=== PATIENT | female | born 1980 | race Hispanic/Latino ===

== ENCOUNTER 2017-10-02 16:59 | Emergency (ER) | payer OTHER ==
[~2017-10-02] VITALS: Ht 160 cm; Wt 72.6 kg
[~2017-10-02 16:59] MED LIST: DAILY MULTIPLE1 EACH PO; IBUPROFEN800 M1 PO; PERCOCET 5-3251 EACH PO
[2017-10-02 19:19] VITALS: BP 126/80
[2017-10-02] MEDS ORDERED: IBUPROFEN800 M1 PO (20:00)
--- NOTE | 2017-10-02 20:01 | ED NECK/BACK PAIN COMPLAINT ---
History of Present Illness General Chief Complaint: General Adult Stated Complaint: PAIN IN RIGHT SIDE OF NECK, BACK AND LEG Source: patient Exam Limitations: language barrier Vital Signs & Intake/Output Vital Signs & Intake/Output Vital Signs Date Time Temp Pulse Resp B/P B/P Pulse O2 O2 Flow FiO2 Mean Ox Delivery Rate 10/02 1918 97.8 63 18 126/80 99 Room Air Room Air 10/02 1711 96.6 64 18 119/78 97 Room Air ED Intake and Output 10/03 0000 10/02 1200 Intake Total Output Total Balance Patient 160 lb Weight Weight Reported by Patient Measurement Method Allergies Coded Allergies: NO KNOWN ALLERGIES (08/13/15) Reconcile Medications Ibuprofen 800 MG TABLET 1 TAB PO TID PAIN Ibuprofen 800 MG TABLET 800 MG PO Q6P PRN UTERINE CRAMPING Multivitamin (Daily Multiple Vitamin) 1 EACH TABLET 1 TAB PO DAILY VITAMIN SUPPORT (Reported) Oxycodone HCl/Acetaminophen (Percocet 5-325 MG Tablet) 1 EACH TABLET 1 TAB PO Q4P PRN PAIN SCALE 4-6 (MODERATE) Triage Note: PT STATES SHE WOKE WITH A STIFF NADINE RIGHT SIDE AND HER BACK AND LEG HURT. Triage Nurses Notes Reviewed? yes Duration: day(s): Timing: recent history : No Patient currently breastfeeds: Yes HPI: This is a 37 y/o female with no significant PMH c/o pain in L gluteal region that started 3 days ago. Pt describes pain as sharp. Pt has been icing the area w/o relief. Pain radiates down the lateral side of her L thigh and posterior calf. Yesterday pt developed pain in her flank region bilaterally with both shoulders and posterior neck pain. Pt denies any trauma or fall. Pt lifts heavy boxes for work. Pain exacerbates with movement. Pt took Motrin with significant relief. Pt denies any CP, SOB, abd pain, N/V/D/C. (Krystian Anaya) Past History Travel History Traveled to [place] past 21 day No Medical History Any Pertinent Medical History? see below for history Neurological: NONE EENT: NONE Cardiovascular: NONE Respiratory: NONE Gastrointestinal: NONE Hepatic: NONE Renal: NONE Musculoskeletal: NONE Psychiatric: NONE Endocrine: NONE Blood Disorders: NONE Cancer(s): NONE METAL MACHINIST/Reproductive: MISCARIAGE X2 Surgical History Surgical History: non-contributory Psychosocial History What is your primary language Syriac Tobacco Use: Never used ETOH Use: denies use Illicit Drug Use: denies illicit drug use Family History Hx Contributory? No (Krystian Anaya) Review of Systems Review of Systems Constitutional: Reports: no symptoms. Eyes: Reports: no symptoms. Ears, Nose, Throat, Mouth: Reports: no symptoms. Respiratory: Reports: no symptoms. Cardiovascular: Reports: no symptoms. Gastrointestinal/Abdominal: Reports: no symptoms. Musculoskeletal: Reports: back pain, muscle pain, muscle stiffness, neck pain. Skin: Reports: no symptoms. Neurological/Psychological: Denies: numbness, paresthesia, tingling, weakness. All Other Systems: Reviewed and Negative (Krystian Anaya) Physical Exam Physical Exam General Appearance: well developed/nourished, mild distress Head: atraumatic, normal appearance Eyes: Bilateral: PERRL, EOMI. Ears, Nose, Throat, Mouth: hearing grossly normal Neck: normal inspection, full range of motion, normal alignment, paraspinous muscle tender Respiratory: normal breath sounds, no respiratory distress, lungs clear Cardiovascular: regular rate/rhythm Gastrointestinal: normal bowel sounds, soft, non-tender Back: normal inspection, normal range of motion, vertebral tenderness, Paraspinal muscle tenderness Extremities: normal range of motion Straight Leg Raising: Right: Negative. Left: Negative. Motor: Deficit L4 Right: No Deficit L4 Left: No Deficit L5 Right: No Deficit L5 Left: No Deficit S1 Right: No Deficit S1 Right: No DTR: Patellar: 3: L4 Right, L4 Left. Neurologic/Psych: awake, alert, oriented x 3, normal mood/affect Skin: intact, normal color, warm/dry Core Measures CVA/TIA Diagnosis: No (Krystian Anaya) Progress Differential Diagnosis: cauda equina syn, herniated disc, myofascial strain, sciatica, muscle strain, muscle spasming Plan of Care: 10/02/17 Patient clinically looks well. Patient is in no apparent distress. Symptoms are most consistent with muscle spasming and pain. Patient had no abdominal pain complaints. No fever chills vomiting. She clinically looks well. Pain is worse with movement. Reproducible on exam. No motor deficits. (Krystian Anaya) Departure Departure Disposition: HOME OR SELF CARE Condition: Stable Clinical Impression Primary Impression: Spasm of back muscles Referrals: Patient Has No Primary Care Dr (PCP/Family) Additional Instructions: Take ibuprofen as prescribed. Follow-up with primary care doctor. Return if any concerns worsening symptoms. Please go over all results of today's visit with your primary care doctor. Contact your primary care doctor to let them know you were here in the emergency room. There may be nonspecific findings which may not be related to your visit today here in the emergency room but may require further evaluation and chronic monitoring by your primary care doctor. If you had a laceration today the chance of foreign body always remains. You should follow-up with your primary care doctor for recheck in 3-5 days for a wound check. If you had an x-ray done there is a chance that a fracture could have been missed on initial read and you should follow-up with your primary care doctor for repeat x-rays if symptoms persist. If your blood pressure was elevated here in the emergency room please have rechecked by [facility] primary care doctor within the next 48. If you were prescribed a narcotic here in the emergency room or any type of controlled substances you're not allowed to drive while taking this medication or operate any type of heavy machinery. Narcotics can make you feel lightheaded dizziness nausea and can cause constipation. You may need to fish bait picker a stool softener. Thank you for choosing [facility] emergency room. Please return to the emergency room immediately if you have any other concerns worsening of symptoms. Departure Forms: Customer Survey General Discharge Information Prescriptions: Current Visit Scripts Ibuprofen 1 TAB PO TID #30 TAB (Krystian Anaya) PA/RADIATION CONTROL WORKER Co-Sign Statement Statement: ED Attending supervision documentation- [] I saw and evaluated the patient. I have also reviewed all the pertinent lab results and diagnostic results. I agree with the findings and the plan of care as documented in the PA's/RADIATION CONTROL WORKER's documentation. [X] I have reviewed the ED Record and agree with the PA's/RADIATION CONTROL WORKER's documentation. [] Additions or exceptions (if any) to the PAs/RADIATION CONTROL WORKER's note and plan are summarized below: [] (Patricio RIVERA,Elio Delcid)
== END 2017-10-02 20:17 ==
LOC: ERH 16:59
DX: M62.830 Muscle spasm of back (principal)